=== PATIENT | male | born 1970 | race Caucasian/White ===

== ENCOUNTER 2025-04-25 06:29 | Day surgery (SDC) | payer OTHER, SELFPAY ==
[2025-04-17 13:55] VITALS: BMI 26.0
[2025-04-25] VITALS (9 sets, daily range): BP systolic 116–133; BP diastolic 61–87; BMI 26.0
[2025-04-25] MEDS: TYLENOL 1000 MG PO (07:50)
[2025-04-25] MEDS: NORMOSOL-R/PLASMALYTE-A 1000 IV (07:51)
--- NOTE | 2025-04-25 08:40 | W.SUR.PREOP ---
Pre-Operative Surgical Note
-
I have examined this patient prior to the performance of the scheduled procedure.
The patient's condition is unchanged from the time of the current History and
Physical and the patient is able to undergo the scheduled procedure.
--- NOTE | 2025-04-25 08:40 | HP.FOC2 ---
Focused History & Physical
Chief Complaint
HPI:
Chief Complaint: Right inguinal hernia
HPI / Indication for Planned Procedure: This is a 55-year-old male who presents with a symptomatic right inguinal hernia. Will plan for robotic inguinal hernia repair with mesh.
Relevant Past Medical History: Negative
Relevant Social History: Negative
Relevant Family History: Negative
Relevant Past Surgical History: Negative
Review of Systems
Review of Pertinent Systems: All Systems Negative
Medication
See Medication form for detailed medications: Yes
Medication List (including Herbals & OTC):
escitalopram oxalate 10 mg tablet 10 mg PO DAILY 04/17/25
lorazepam 0.5 mg tablet 0.5 mg PO DAILY PRN anxiety 04/17/25
Medications Reviewed: Yes
Allergies and Reactions
Patient has Allergies: No
Noted Allergies and Reactions:
Allergy/AdvReac Type Severity Reaction Status Date / Time
No Known Allergies Allergy Verified 04/25/25 07:47
Pertinent Physical Exam
All Other Systems: Negative
Head/Neck: Normal
Diagnosis / Assessment
This is a 55-year-old male who presents with a symptomatic right inguinal hernia. Will plan for robotic inguinal hernia repair with mesh.
Plan / Procedure
This is a 55-year-old male who presents with a symptomatic right inguinal hernia. Will plan for robotic inguinal hernia repair with mesh.
Anesthesia/Sedation to be done by Anesthesia Provider: Yes
--- NOTE | 2025-04-25 10:44 | W.IMMPOSTOP ---
Surgical Immed Post Op Note
-
Primary Surgeon: Jay Barbour MD
Assisting Surgeon: None
Pre-op Diagnosis: Right inguinal hernia
Post-op Diagnosis: Right femoral hernia
Procedure Performed: Robotic right femoral hernia repair with mesh
Anesthesia Type: General
Specimen / Cultures: Cord lipoma
Estimated Blood Loss: 11 cc
Complications: None
Operative Findings: Small indirect and direct defects over the largest portion of the hernia was in the femoral space which was carefully reduced off of the fatty structures around an accessory obturator. The patient also was noted to have a small
cord lipoma which was reduced and resected. After achieving the critical view of the MPO the space was reinforced with a large right Bard 3D max uncoated mid weight polypropylene mesh.
--- NOTE | 2025-04-25 10:46 | OR.RPT ---
Operative Report
Operative Report
Patient Name: Kendall Booth
: 1970
Date of Operation: 04/25/2025
Preoperative Diagnosis: Right inguinal hernia
Postoperative Diagnosis: Right femoral hernia
Procedure(s):
1. Robotic right femoral inguinal Hernia Repair with mesh, (ART approach)
2. Excision of lesion of a spermatic cord lipoma ([id number])
Surgeon(s):
Dr. Barbour
R And D Lab Technician(s):
NARENDRA Cotto
Anesthesia: General
Estimated Blood Loss: 11 cc
Urine Output: None
Drains/Lines/Implants: Large 3D Max Bard mid weight uncoated polypropylene mesh
Specimens: Right cord lipoma
Indication for surgery: The patient has a history of groin pain and noted on exam to have a right inguinal Hernia. Following review of therapeutic options they have elected to undergo a minimally invasive repair.
Operative Findings: Small indirect and direct defects over the largest portion of the hernia was in the femoral space which was carefully reduced off of the fatty structures around an accessory obturator. The patient also was noted to have a small
cord lipoma which was reduced and resected. After achieving the critical view of the MPO the space was reinforced with a large right Bard 3D max uncoated mid weight polypropylene mesh.
Details of the operation:
The patient was brought to the Operating Room and placed in the supine position with the arms tucked. IV antibiotics were infused and Venodyne stockings placed. Following uneventful induction of general endotracheal anesthesia, an orogastric tube
was placed. The abdomen was prepped and draped in the usual sterile fashion. The abdomen was entered using a Veress technique which required 1 pass(es), pneumoperitoneum to 15 mmHg was obtained without difficulty. An 8mm trochar was passed through
the abdominal wall roughly 20 cm cephalad to the inguinal canal. We then confirmed that no inadvertent injury was made while passing the trocar or Veress needle. We then placed two additional 8 mm ports in the left upper and right upper quadrants.
We then docked the robot with a Prograsper in the left hand port and monopolar scissors in the right. A defect was noted in the right inguinal space, no appreciable defect in the left. We then began by creating a flap at the level of the ASIS
laterally working our way medially to the medial umbilical fold. Staying onto the peritoneum we were able to circumferentially dissect around the hernia sac and and peel it off of the underlying spermatic cord and testicular vessels, taking care to
preserve them. Medially we identified the midline pubis as well as Donny's ligament and ensured to dissect 2 cm below the pubic rim over the bladder. After exposure of the entire myopectineal orifice we identified and reduced: A minuscule
indirect inguinal hernia, a small direct inguinal hernia, and a large femoral hernia containing preperitoneal flap from the space of Retzius. This was carefully dissected off of an accessory obturator running through the femoral space. The patient
was also noted to have a small cord lipoma which was reduced and resected. Having achieved the critical view of of the MPO, We then fixated a large 3D max mesh with a 2-0 Vicryl stitch at coopers medially and superior laterally. The flap was then
closed with a running 2-0 barbed monocryl suture ensuring that the tail was cut flush with the medial fat pad so that no barbs were exposed. During the closure of the flap an Angiocath was inserted and 20 cc of quarter percent Marcaine was
instilled. The area in the flap cavity was then evacuated of air confirming that the mesh was flush and there were no folds. A small rent in the peritoneum was noted and closed with 2-0 Vicryl. All needles and instruments were then removed and the
robot was undocked. The abdomen was then desufflated, and pneumoperitoneum evacuated. All skin sites were then closed with 4-0 Monocryl followed by Dermabond. Counts were correct and overall, the patient tolerated the procedure well and was taken
to the Recovery Room postoperatively in stable condition.
I was the attending physician and performed the procedure with assistance of the PA above. The assistance of NARENDRA Cotto was required due to the complexity of the procedure. During the procedure Bea assisted with port placement, instrument
and needle exchanges, and closure of the wound. I was present for all portions of the case, excluding skin closure.
Jay Barbour MD
[2025-04-25] MEDS: DILAUDID 0.25 MG IV (11:03)
== END 2025-04-25 12:48 | disposition home or self-care (01) ==
LOC: SDS 06:29
PROVIDERS: ATTENDING PHYSICIAN Surgery; FAMILY PHYSICIAN Physician Assistant Medical
DX: K40.90 Unilateral inguinal hernia, without obstruction or gangrene, not specified as recurrent (principal); K41.90 Unilateral femoral hernia, without obstruction or gangrene, not specified as recurrent
CPT/HCPCS: 49650; 36415; 88304; 93005; C1781